=== PATIENT | male | born 1960 | race Caucasian/White ===

== ENCOUNTER 2016-12-31 21:06 | Inpatient (IN) | payer MEDICAID ==
[~2016-12-31 21:06] MED LIST: ACETAMINOPHEN500 M4 PO; ACTOS30 MG PO; ADVAIR 25028 BLISTE1 INH; ADVAIR 25028 BLISTE1 PO; ADVAIR 25028 BLISTER INH; ADVAIR INH; ALBUTEROL2.5 MG/3 M AERO NEB; ALBUTEROL2.5 MG/3 M INH; AMARYL4 M1 PO; AMARYL4 MG PO; ASPIR-LOW81 M1 PO; ASPIRIN81 MG PO; BACITRACIN28.4 G2 TP; BACTRIM DS TABL1 TAB PO; BACTRIM DS1 TA1 PO; CEPHALEXIN500 M1 PO; COLESTID1 GM PO; COLESTIPOL HCL1 G2 PO; COLESTIPOL HCL500 GM PO; COMBIVENT RESPIM4 G1 IH; DELTASONE20 MG PO; FENOFIBRATE145 M2 PO; FLONASE ALLERG9.9 ML; FLUDROCORTISON0.1 M1 PO; GLUCAGEN1 MG/1 ML IM; GLUCOPHAGE1000 MG PO; HUMALOG100 UNITS/ SC; HYDROCORTISON28.4 G1 TOP; INVOKANA100 MG PO; INVOKANA300 MG PO; IPRAT-ALBUT 0.5-3 ML INH; KEFLEX500 M4 PO; LEVAQUIN750 M1 PO; LEVEMIR100 UNITS/ SC; LOFIBRA160 M1 PO; LOTRISONE CREAM45 GM TP; MAG-AL PLUS XS30 ML PO; MUCINEX DM PO; NEURONTIN300 M1 PO; NOVOLOG100 UNITS/ SC; OXYGEN; PRAVACHOL20 MG PO; PREDNISONE10 M1 PO; PREDNISONE10 MG PO; PREDNISONE20 M1 PO; PROAIR HFA8.5 GM IH; PROTONIX40 M2 PO; PROTONIX40 MG PO; PROVENTIL HFA6.7 G1 IH; PROVENTIL HFA6.7 G1 INH; ROPINIROLE HCL1 M1 PO; SIMVASTATIN40 M1 PO; SODIUM BICARBO650 M1 PO; SPIRIVA18 MC1 INH; SULFAMYLON SOL250 M1 EXT; SULFAMYLON60 GM EXT; SYMBICORT 160-1 PUFF INH; TYLENOL325 M2 PO; TYLENOL325 MG PO; VENTOLIN HFA18 GM IH; VENTOLIN HFA18 GM INH; WELCHOL625 M1 PO; XARELTO15 M1 PO; XARELTO20 M1 PO; ZESTRIL5 MG PO; ZOCOR40 M1 PO; [UNRECOGNIZED DRUG - OTHER] TP
[2016-12-31 21:58] LABS: BASO % 0.6 % (0-2); EOS % 0.9 % (0-7); EOSINOPHIL ABSOLUTE COUNT 0.1 tho/cmm (0.0-0.7); HGB-HEMOGLOBIN 15.3 gm/dl (13.5-17.0); IMMATURE GRANULOCYTES ABSOLUTE 0.08 tho/cmm (0-0.03); IMMATURE GRANULOCYTES PERCENT 1.2 % (0-0.3); LYMPH % 9.1 % (20-45); LYMPH ABSOLUTE COUNT 0.6 tho/cmm (0.8-4.5); MCH (MEAN CORPUSCULAR HGB) 31.7 pg (28.0-32.0); MCV (MEAN CELL VOLUME) 93.4 fl (82.0-96.0); MEAN PLATELET VOLUME 11.2 cmc (9.4-12.4); MONO % 8.2 % (0-12); MONOCYTE ABSOLUTE COUNT 0.6 tho/cmm (0.0-1.2); NEUTROPHIL ABSOLUTE COUNT 5.5 tho/cmm (1.6-8.0); NEUTROPHIL-AUTOMATED 5.5 tho/cmm (1.6-8.0); PLATELET COUNT 171 tho/cmm (150-450); RED BLOOD COUNT 4.82 mil/cmm (4.40-5.70); RED CELL DISTRIBUTION WIDTH 14.3 % (12.4-16.4); WHITE BLOOD COUNT 6.9 tho/cmm (4.0-10.0)
[2016-12-31 22:27] LABS: PROCALCITONIN 0.17 ng/ml (0.05-0.09)
[2016-12-31 23:52] LABS: ANION GAP 15 mmol/L (0-20); CARBON DIOXIDE-VENOUS 27 mmol/L (22-32); CHLORIDE 95 mmol/l (96-110); POTASSIUM 5.6 mmol/L (3.7-5.1); SODIUM 131 mmol/L (135-145)
[2016-12-31 23:53] LABS: BLOOD UREA NITROGEN 31 mg/dl (6-24); CALCIUM 8.5 mg/dl (8.5-10.5); CREATININE 1.44 mg/dl (0.60-1.30); GLUCOSE 356.4 mg/dL (70-110); eGFR VALUE FOR BLACK 63 mL/Min
[2016-12-31 23:54] LABS: ALBUMIN 3.8 g/dl (3.5-5.0); ALKALINE PHOSPHATASE 53 U/L (33-138); AST/SGOT 64 U/L (10-40); BILIRUBIN,TOTAL 0.7 mg/dl (0.0-1.5)
[2016-12-31 23:55] LABS: ALT/SGPT 80 U/L (12-78)
[2017-01-01 03:08] LABS: PROTHROMBIN TIME 11.4 SECONDS (9.0-13.6)
[2017-01-01 03:22] LABS: C-REACTIVE PROTEIN 0.5 mg/dl (0-0.9); MAGNESIUM 2.1 mg/dl (1.3-2.6)
[2017-01-01 03:27] LABS: CREATINE PHOSPHOKINASE (CPK) 512 U/L (35-232)
[2017-01-01 03:34] LABS: CKMB 16.7 ng/ml (<3.6)
[2017-01-01 06:11] LABS: CHOLESTEROL 291 mg/dl (120-200); HDL CHOLESTEROL 44 mg/dl (40-60)
[2017-01-01 06:12] LABS: TRIGLYCERIDES 1143 mg/dl (<149)
[2017-01-02 07:16] LABS: BASO % 0.1 % (0-2); HCT-HEMATOCRIT 45.9 % (36.0-53.5); HGB-HEMOGLOBIN 14.8 gm/dl (13.5-17.0); IMMATURE GRANULOCYTES ABSOLUTE 0.05 tho/cmm (0-0.03); IMMATURE GRANULOCYTES PERCENT 0.4 % (0-0.3); LYMPH % 2.6 % (20-45); LYMPH ABSOLUTE COUNT 0.3 tho/cmm (0.8-4.5); MCH (MEAN CORPUSCULAR HGB) 30.6 pg (28.0-32.0); MCHC MEAN CORPUSCULAR HGB CONC 32.2 % (32.0-36.0); MCV (MEAN CELL VOLUME) 94.8 fl (82.0-96.0); MEAN PLATELET VOLUME 11.3 cmc (9.4-12.4); MONO % 2.9 % (0-12); MONOCYTE ABSOLUTE COUNT 0.4 tho/cmm (0.0-1.2); NEUTROPHIL ABSOLUTE COUNT 11.7 tho/cmm (1.6-8.0); NEUTROPHIL-AUTOMATED 11.7 tho/cmm (1.6-8.0); PLATELET COUNT 161 tho/cmm (150-450); RED BLOOD COUNT 4.84 mil/cmm (4.40-5.70); RED CELL DISTRIBUTION WIDTH 14.6 % (12.4-16.4)
[2017-01-02 07:23] LABS: WHITE BLOOD COUNT 12.5 tho/cmm (4.0-10.0)
[2017-01-02 07:24] LABS: ALB/GLOB RATIO 1.2 (0.8-2.0); ALBUMIN 4.2 g/dl (3.5-5.0); ALKALINE PHOSPHATASE 45 U/L (33-138); ALT/SGPT 71 U/L (12-78); ANION GAP 15 mmol/L (0-20); AST/SGOT 21 U/L (10-40); BILIRUBIN,TOTAL 0.4 mg/dl (0.0-1.5); CALCIUM 9.7 mg/dl (8.5-10.5); CARBON DIOXIDE-VENOUS 29 mmol/L (22-32); CHLORIDE 100 mmol/l (96-110); CREATININE 1.55 mg/dl (0.60-1.30); POTASSIUM 5.3 mmol/L (3.7-5.1); SODIUM 139 mmol/L (135-145); eGFR VALUE FOR BLACK 58 mL/Min
[2017-01-02 07:34] LABS: BLOOD UREA NITROGEN 48 mg/dl (6-24)
[2017-01-02 07:36] LABS: GLUCOSE 466 mg/dL (70-110)
[2017-01-02 14:01] LABS: ABG CO2 ARTERIAL 32 mmol/L (21-27); ARTERIAL BLD GAS O2 SATURATION 94 % (95-98); ARTERIAL BLOOD GAS PCO2 67 mmHg (32-45); ARTERIAL PO2 81 mmHg (70-100); BICARBONATE 30 mmol/L (21-28); BLOOD GAS BASE EXCESS 1 mM/L (-/+3); PH 7.27 Units (7.35-7.45)
[2017-01-02 16:52] LABS: ABG CO2 ARTERIAL 33 mmol/L (21-27); ARTERIAL BLD GAS O2 SATURATION 96 % (95-98); BICARBONATE 31 mmol/L (21-28); BLOOD GAS BASE EXCESS 2 mM/L (-/+3); PH 7.26 Units (7.35-7.45)
[2017-01-02 16:54] LABS: ARTERIAL PO2 93 mmHg (70-100)
[2017-01-02 16:56] LABS: ARTERIAL BLOOD GAS PCO2 72 mmHg (32-45)
[2017-01-02 18:26] LABS: ABG CO2 ARTERIAL 33 mmol/L (21-27); ARTERIAL BLD GAS O2 SATURATION 96 % (95-98); ARTERIAL BLOOD GAS PCO2 67 mmHg (32-45); ARTERIAL PO2 87 mmHg (70-100); BICARBONATE 31 mmol/L (21-28); BLOOD GAS BASE EXCESS 3 mM/L (-/+3); PH 7.29 Units (7.35-7.45)
[2017-01-03 04:53] LABS: ABG CO2 ARTERIAL 35 mmol/L (21-27); ARTERIAL BLD GAS O2 SATURATION 95 % (95-98); ARTERIAL BLOOD GAS PCO2 68 mmHg (32-45); ARTERIAL PO2 79 mmHg (70-100); BICARBONATE 32 mmol/L (21-28); BLOOD GAS BASE EXCESS 4 mM/L (-/+3)
[2017-01-03 05:33] LABS: ANION GAP 10 mmol/L (0-20); BLOOD UREA NITROGEN 51 mg/dl (6-24); CALCIUM 8.9 mg/dl (8.5-10.5); CARBON DIOXIDE-VENOUS 34 mmol/L (22-32); CHLORIDE 101 mmol/l (96-110); CREATININE 1.46 mg/dl (0.60-1.30); GLUCOSE 406 mg/dL (70-110); SODIUM 140 mmol/L (135-145); eGFR VALUE FOR BLACK 62 mL/Min
[2017-01-04 05:24] LABS: BLOOD UREA NITROGEN 40 mg/dl (6-24); CALCIUM 8.4 mg/dl (8.5-10.5); CARBON DIOXIDE-VENOUS 31 mmol/L (22-32); CHLORIDE 102 mmol/l (96-110); CREATININE 1.19 mg/dl (0.60-1.30); GLUCOSE 335 mg/dL (70-110); SODIUM 140 mmol/L (135-145); eGFR VALUE FOR BLACK 79 mL/Min
[2017-01-04 05:26] LABS: ANION GAP 12 mmol/L (0-20); POTASSIUM 4.9 mmol/L (3.7-5.1); TRIGLYCERIDES 566 mg/dl (<149)
[2017-01-04 08:08] LABS: ABG CO2 ARTERIAL 37 mmol/L (21-27); ARTERIAL BLD GAS O2 SATURATION 88 % (95-98); ARTERIAL BLOOD GAS PCO2 66 mmHg (32-45); BICARBONATE 35 mmol/L (21-28); BLOOD GAS BASE EXCESS 7 mM/L (-/+3); PH 7.34 Units (7.35-7.45)
[2017-01-04 08:12] LABS: ARTERIAL PO2 58 mmHg (70-100)
--- NOTE | 2017-01-04 14:26 | NUR ---
AGREE WITH STUDENT CHARTING 4/5, 4/6
[2017-01-05] MEDS ORDERED: ZEBETA5 M2 PO (11:41)
[2017-01-05] MEDS ORDERED: ASPIRIN325 M3 PO (11:44)
[2017-01-05] MEDS ORDERED: DELTASONE20 MG PO (11:50)
[2017-01-05] MEDS ORDERED: NOVOLOG100 UNITS/ SC (11:54)
[2017-01-05] MEDS ORDERED: PROZAC20 M3 PO (11:55)
[2017-01-05] MEDS ORDERED: NORVASC5 M2 PO (11:56)
== END 2017-01-05 17:01 | DRG 190 ==
LOC: EDMED 21:06 → EMR2 01-01 00:47 → PCUB 01-01 16:28
PROVIDERS: Family Medicine; Internal Medicine; Internal Medicine Cardiovascular Disease; Internal Medicine Critical Care Medicine; Physician Assistant; Registered Nurse; Surgery Vascular Surgery; ADMIT Hospitalist
PROC: 4A023N7 Measurement of Cardiac Sampling and Pressure, Left Heart, Percutaneous Approach (ICD-10-PCS; principal; 2017-01-03)
PROC: B2111ZZ Fluoroscopy of Multiple Coronary Arteries using Low Osmolar Contrast (ICD-10-PCS; 2017-01-03)
DX: J44.1 Chronic obstructive pulmonary disease with (acute) exacerbation (principal); J96.21 Acute and chronic respiratory failure with hypoxia; E11.21 Type 2 diabetes mellitus with diabetic nephropathy; I20.0 Unstable angina; Z68.41 Body mass index [BMI] 40.0-44.9, adult; E11.40 Type 2 diabetes mellitus with diabetic neuropathy, unspecified; J96.22 Acute and chronic respiratory failure with hypercapnia; I25.110 Atherosclerotic heart disease of native coronary artery with unstable angina pectoris; E87.5 Hyperkalemia
CPT/HCPCS: C1894; J1644; J1815; J1956; J2250; J2270; J2930; J3010; J7030; J7512; Q9967